=== PATIENT | female | born 1975 | race African-American/Black ===

== ENCOUNTER 2017-01-26 07:49 | Emergency (ER) | payer OTHER ==
[~2017-01-26] VITALS: Ht 160 cm; Wt 72.6 kg
[2017-01-26 07:54] VITALS: BP 120/70
[2017-01-26] MEDS ORDERED: LIDO700A4 TP (08:15)
[2017-01-26] MEDS ORDERED: METH4TAB2 PO (08:15)
[2017-01-26] MEDS ORDERED: DIAZ5TAB PO (08:15)
[2017-01-26] MEDS ORDERED: HYDROcodone/APAP 5/325MG 1 TAB TABLET PO ONE (08:15)
--- NOTE | 2017-01-26 08:22 | PHYS DOC ---
Past Medical History Past Medical History: Other Additional Past Medical Histor: "RENAL CYST" Past Surgical History: Hysterectomy Alcohol Use: None Drug Use: None Adult General Chief Complaint Chief Complaint: LOWER BACK PAIN HPI HPI Patient is a 41 year old FEMALE who presents with low back pain. She's been having this pain for months, she is unsure of exacerbating or relieving factors , pain radiates from her mid back through to her feet bilaterally. She's been seen by her primary care physician and put on ibuprofen and Flexeril but this does not help her pain. She denies any saddle sensory change, no bowel or bladder incontinence or retention. She does not recall a specific injury that caused her pain. Not had any imaging of her back. No dysuria or increased urinary frequency, no fever. No change in her pain over the last several months. Review of Systems Review of Systems Constitutional: Denies fever or chills [] Eyes: Denies change in visual acuity, redness, or eye pain [] HENT: Denies nasal congestion or sore throat [] Respiratory: Denies cough or shortness of breath [] Cardiovascular: No additional information not addressed in HPI [] GI: Denies abdominal pain, nausea, vomiting, bloody stools or diarrhea [] : Denies dysuria or hematuria [] Musculoskeletal: Denies joint pain [] Integument: Denies rash or skin lesions [] Neurologic: Denies headache, focal weakness or sensory changes [] Current Medications Current Medications Current Medications Medications (Trade) Dose Ordered Sig/Sean Start Time Stop Time Status Last Admin Dose Admin Acetaminophen/ Hydrocodone Bitart (Lortab 5/325) 1 tab 1X ONCE 01/26/17 08:15 01/26/17 08:16 DC Diazepam (Valium) 5 mg 1X ONCE 01/26/17 08:15 01/26/17 08:16 DC Allergies Allergies Allergies Coded Allergies Type Severity Reaction Last Updated Verified No Known Drug Allergies 11/13/14 No Physical Exam Physical Exam Constitutional: Well developed, well nourished, no acute distress, non-toxic appearance. [] HENT: Normocephalic, atraumatic, bilateral external ears normal, oropharynx moist, no oral exudates, nose normal. [] Eyes: PERRLA, EOMI, conjunctiva normal, no discharge. [] Neck: Normal range of motion, no tenderness, supple, no stridor. [] Cardiovascular:Heart rate regular with regular rhythm, no murmur [] Lungs & Thorax: Bilateral breath sounds clear to auscultation [] Abdomen: soft, no tenderness, no masses, no pulsatile masses. [] Skin: Warm, dry, no erythema, no rash. [] Back: No midline tenderness or step-offs, tender to palpation in the left mid back and over left SI joint, positive straight leg test bilaterally, no erythema or increased warmth, no fluctuance. Extremities: No tenderness, no cyanosis, no clubbing, ROM intact, no edema. [] Neurologic: Alert and oriented X 3, normal motor function, normal sensory function, no focal deficits noted. [] Psychologic: Affect normal, judgement normal, mood normal. [] Current Patient Data Vital Signs Vital Signs Date Time Temp Pulse Resp B/P (MAP) Pulse Ox O2 Delivery O2 Flow Rate FiO2 01/26/17 07:54 97.9 93 18 97 Room Air 97.9 EKG EKG [] Radiology/Procedures Radiology/Procedures [] Course & Med Decision Making Course & Med Decision Making Pertinent Labs and Imaging studies reviewed. (See chart for details) Patient is not driving. She was given IM Valium and one Moroni tablet. We'll discharge with Medrol Dosepak, Valium for muscle spasms, instructed not to take the Flexeril while taking the Valium, Lidoderm patches. One day work note given. Discussed with the patient that she's had these symptoms for extended period time and recommend her doctor ordering advanced imaging. Shashi Disclaimer Shashi Disclaimer This electronic medical record was generated, in whole or in part, using a voice recognition dictation system. Departure Departure Impression: Primary Impression: Radiculopathy Disposition: HOME, SELF-CARE Condition: STABLE Referrals: NO PCP Patient Instructions: Radicular Pain, Form - Excuse from Work, School, or Physical Activity, Back Pain, Adult, [id number] Scripts Lidocaine (LIDODERM) 700 Mg Adh..patch 1 PATCH TP DAILY Y for PAIN, #5 PATCH 0 Refills APPLY TO AFFECTED AREA FOR UP TO 12 HOURS, THEN REMOVE FOR 12 HOURS Prov: SIMI DALTON MD 01/26/17 Methylprednisolone (MEDROL) 4 Mg Tab.ds.pk 1 PKG PO UD, #1 PKG Prov: SIMI DALTON MD 01/26/17 Diazepam (VALIUM) 5 Mg Tablet 5 MG PO TID Y for MUSCLE SPASMS, #[address] OR OPERATE MACHINERY WHILE TAKING. Prov: SIMI DALTON MD 01/26/17 SIMI DALTON MD January 26, 2017 08:22
== END 2017-01-26 08:35 | disposition home or self-care (01) ==
LOC: ER 08:11
DX: M54.10 Radiculopathy, site unspecified (principal); M54.5 Low back pain; M54.6 Pain in thoracic spine; Z90.710 Acquired absence of both cervix and uterus
CPT/HCPCS: 96372; 99283; J3360

== ENCOUNTER 2017-02-20 11:26 | Emergency (ER) | payer OTHER ==
[~2017-02-20] VITALS: Ht 167.6 cm; Wt 79.4 kg
[~2017-02-20 11:26] MED LIST: DIAZ5TAB PO; LIDO700A4 TP; METH4TAB2 PO
[2017-02-20 11:45] VITALS: BP 125/74
[2017-02-20] MEDS ORDERED: AMOX1TAB61 PO (12:13)
--- NOTE | 2017-02-20 12:13 | PHYS DOC ---
Past Medical History Past Medical History: Other Additional Past Medical Histor: "RENAL CYST" Past Surgical History: Hysterectomy Alcohol Use: None Drug Use: None Adult General Chief Complaint Chief Complaint: SORE THROAT HPI HPI Patient is a 41 year old female since emergency department stating that she's had a 4 day history of sore throat. She is unsure if she had a fever or not she states that her boyfriend said that she felt warm. Patient states she's been taken ibuprofen for the discomfort. Patient continues to state that she has generalized body aches and discomfort. She denies any nasal drainage or any discharge. She denies cough. Denies any abdominal pain or discomfort no nausea vomiting and no diarrhea. Review of Systems Review of Systems Constitutional: Denies fever or chills [] Eyes: Denies change in visual acuity, redness, or eye pain [] HENT: Denies nasal congestion C/o sore throat [] Respiratory: Denies cough or shortness of breath [] Cardiovascular: No additional information not addressed in HPI [] GI: Denies abdominal pain, nausea, vomiting, bloody stools or diarrhea [] : Denies dysuria or hematuria [] Musculoskeletal: Denies back pain or joint pain [] Integument: Denies rash or skin lesions [] Neurologic: Denies headache, focal weakness or sensory changes [] Endocrine: Denies polyuria or polydipsia [] Allergies Allergies Allergies Coded Allergies Type Severity Reaction Last Updated Verified No Known Drug Allergies 11/13/14 No Physical Exam Physical Exam Constitutional: Well developed, well nourished, no acute distress, non-toxic appearance. [] HENT: Normocephalic, atraumatic, bilateral external ears normal, oropharynx moist, no oral exudates, nose normal. Bilateral tympanic membranes appear to be normal. Throat with postnasal drip noted clear to slightly yellowish in color. Throat appears to be red no exudate noted. Eyes: PERRLA, EOMI, conjunctiva normal, no discharge. [] Neck: Normal range of motion, no tenderness, supple, no stridor. [] Cardiovascular:Heart rate regular rhythm, no murmur [] Lungs & Thorax: Bilateral breath sounds clear to auscultation [] Skin: Warm, dry, no erythema, no rash. [] Back: No tenderness Extremities: No tenderness, no cyanosis, no clubbing, ROM intact, no edema. [] Neurologic: Alert and oriented X 3, normal motor function, normal sensory function, no focal deficits noted. [] Psychologic: Affect normal, judgement normal, mood normal. [] Current Patient Data Vital Signs Vital Signs Date Time Temp Pulse Resp B/P (MAP) Pulse Ox O2 Delivery O2 Flow Rate FiO2 02/20/17 11:45 99.3 115 20 99 Room Air 99.3 EKG EKG [] Radiology/Procedures Radiology/Procedures [] Course & Med Decision Making Course & Med Decision Making Pertinent Labs and Imaging studies reviewed. (See chart for details) Patient will be discharged home with Augmentin as the rapid strep is negative. She does not have any sinus pressure or tenderness noted over the maxillary or frontal sinus area. She was recommended to use Tylenol or ibuprofen for pain and discomfort as well as fevers. Encourage plenty of fluids such as water or Gatorade or propel. Patient will be discharged home with recommendations to follow-up primary care physician next 5-7 days. Signs and symptoms to return back to emergency department been provided. [] Dragon Disclaimer Dragon Disclaimer This electronic medical record was generated, in whole or in part, using a voice recognition dictation system. Departure Departure Impression: Primary Impression: URI (upper respiratory infection) Disposition: 01 HOME, SELF-CARE Condition: STABLE Referrals: AALIYAH YOUNGER MD (PCP) Patient Instructions: Upper Respiratory Infection, Adult, [id number] Additional Instructions: Home to rest. Tylenol or ibuprofen for fever chills or generalized body aches and discomfort. Drink plenty of fluids such as water Gatorade or propel. Medication as prescribed. Follow-up to primary care physician in the next 7-10 days. Return back to emergency prior signs and symptoms of become worse. Scripts Amoxicillin/Potassium Clav (AUGMENTIN 875-125 TABLET) 1 Each Tablet 1 TAB PO BID, #20 TAB Prov: WERNER FREDERICK APRN 02/20/17 WERNER FREDERICK APRN Feb 20, 2017 12:13
== END 2017-02-20 12:23 | disposition home or self-care (01) ==
LOC: ER 11:26
DX: J06.9 Acute upper respiratory infection, unspecified (principal); Z90.710 Acquired absence of both cervix and uterus
CPT/HCPCS: 99283

== ENCOUNTER 2017-05-12 20:42 | Emergency (ER) | payer OTHER ==
[~2017-05-12] VITALS: Ht 167.6 cm; Wt 79.4 kg
[~2017-05-12 20:42] MED LIST changes: +AMOX1TAB61 PO
[2017-05-12 21:30] VITALS: BP 112/64
[2017-05-12] MEDS ORDERED: ACET-704 PO (21:48)
--- NOTE | 2017-05-12 21:48 | PHYS DOC ---
Past Medical History Past Medical History: Other Additional Past Medical Histor: "RENAL CYST" Past Surgical History: Hysterectomy Alcohol Use: None Drug Use: None Adult General Chief Complaint Chief Complaint: LOWER BACK PAIN OR INJURY HPI HPI Patient is a 41 year old female presents to the emergency department with complaints of pain after a fall 2 weeks ago. Patient states the pain has waxed and waned. She states she has been ambulatory. She has no specific complaints. Review of Systems Review of Systems Constitutional: Denies fever or chills [] Eyes: Denies change in visual acuity, redness, or eye pain [] HENT: Denies nasal congestion or sore throat [] Respiratory: Denies cough or shortness of breath [] Cardiovascular: No additional information not addressed in HPI [] GI: Denies abdominal pain, nausea, vomiting, bloody stools or diarrhea [] : Denies dysuria or hematuria [] Musculoskeletal: Right arm and right leg pain Integument: Denies rash or skin lesions [] Neurologic: Denies headache, focal weakness or sensory changes [] Endocrine: Denies polyuria or polydipsia [] Allergies Allergies Allergies Coded Allergies Type Severity Reaction Last Updated Verified No Known Drug Allergies 11/13/14 No Physical Exam Physical Exam Constitutional: Well developed, well nourished, no acute distress, non-toxic appearance. [] HENT: Normocephalic, atraumatic, bilateral external ears normal, oropharynx moist, no oral exudates, nose normal. [] Eyes: PERRLA, EOMI, conjunctiva normal, no discharge. [] Neck: Normal range of motion, no tenderness, supple, no stridor. [] Cardiovascular:Heart rate regular rhythm, no murmur [] Lungs & Thorax: Bilateral breath sounds clear to auscultation [] Abdomen: Bowel sounds normal, soft, no tenderness, no masses, no pulsatile masses. [] Skin: Warm, dry, no erythema, no rash. [] Back: No tenderness, no CVA tenderness. [] Extremities: No tenderness, no cyanosis, no clubbing, ROM intact, no edema. [] Neurologic: Alert and oriented X 3, normal motor function, normal sensory function, no focal deficits noted. [] Psychologic: Affect normal, judgement normal, mood normal. [] Current Patient Data Vital Signs Vital Signs Date Time Temp Pulse Resp B/P (MAP) Pulse Ox O2 Delivery O2 Flow Rate FiO2 05/12/17 21:30 98.5 78 18 99 Room Air 98.5 EKG EKG [] Radiology/Procedures Radiology/Procedures [] Course & Med Decision Making Course & Med Decision Making Pertinent Labs and Imaging studies reviewed. (See chart for details) [] Dragon Disclaimer Dragon Disclaimer This electronic medical record was generated, in whole or in part, using a voice recognition dictation system. Departure Departure Impression: Primary Impression: Fall Additional Impression: Body aches Disposition: HOME, SELF-CARE Condition: STABLE Patient Instructions: Fall Prevention and Home Safety Scripts Acetaminophen With Codeine (TYLENOL WITH CODEINE #3 TABLET) 1 Each Tablet 1 TAB PO PRN Q6HRS Y for PAIN, #12 TAB Prov: WILFRED CASTELLANOS APRN 05/12/17 Problem Qualifiers Primary Impression: Fall Encounter type: initial encounter Qualified Codes: W19.XXXA - Unspecified fall, initial encounter WILFRED CASTELLANOS APRN May 12, 2017 21:48
== END 2017-05-12 22:05 | disposition home or self-care (01) ==
LOC: ER 20:42
DX: M79.604 Pain in right leg (principal); M79.601 Pain in right arm; Z90.710 Acquired absence of both cervix and uterus; W18.39XA Other fall on same level, initial encounter; Y93.89 Activity, other specified; Y92.89 Other specified places as the place of occurrence of the external cause; Y99.8 Other external cause status
CPT/HCPCS: 99283

== ENCOUNTER 2017-09-03 13:51 | Emergency (ER) | payer OTHER ==
[~2017-09-03] VITALS: Ht 165.1 cm; Wt 81.6 kg
[~2017-09-03 13:51] MED LIST changes: +ACET-704 PO
[2017-09-03 14:00] VITALS: BP 130/79
[2017-09-03 15:17] LABS: BILIRUBIN,URINE NEGATIVE (NEG); GLUCOSE,URINE NEGATIVE (NEG); NITRITE,URINE NEGATIVE (NEG); PROTEIN,URINE NEGATIVE (NEG-TRACE); UROBILINOGEN,URINE 0.2 mg/dL (0.2 mg/dL)
[2017-09-03 15:41] LABS: BACTERIA,URINE FEW /HPF (0-FEW); RBC,URINE OCC /HPF (0-2); SQUAMOUS EPITHELIAL CELL,UR MOD /LPF
[2017-09-04 06:25] LABS: NEGATIVE OBC STREP NEG; POSITIVE OBC STREP POS
--- NOTE | 2017-09-04 07:33 | PHYS DOC ---
Past Medical History Past Medical History: Other Additional Past Medical Histor: "IC", KIDNEY LESION Past Surgical History: Hysterectomy Alcohol Use: None Drug Use: None Adult General Chief Complaint Chief Complaint: SORE THROAT HPI HPI Patient is a 41 year old female who presents with a sore throat and left earache 3 days. The patient also has a runny nose and intermittent cough. She is worried that she might have strep throat. She is unsure if she has been running fevers as she does not have a thermometer at home. Review of Systems Review of Systems Constitutional: Denies fever or chills [] Eyes: Denies change in visual acuity, redness, or eye pain [] HENT: see history of present illness Respiratory: See history of present illness Cardiovascular: No additional information not addressed in HPI [] Musculoskeletal: Denies back pain or joint pain [] Integument: Denies rash or skin lesions [] Neurologic: Denies headache, focal weakness or sensory changes [] Endocrine: Denies polyuria or polydipsia [] All other systems were reviewed and found to be within normal limits, except as documented in this note. Allergies Allergies Allergies Coded Allergies Type Severity Reaction Last Updated Verified No Known Drug Allergies 11/13/14 No Physical Exam Physical Exam Constitutional: Well developed, well nourished, no acute distress, non-toxic appearance. [] HENT: Normocephalic, atraumatic, bilateral external ears normal, oropharynx moist with sinus drainage noted to throat, no oral exudates Eyes: PERRLA, EOMI, conjunctiva normal, no discharge. [] Neck: Normal range of motion, no tenderness, supple, no stridor. [] Cardiovascular:Heart rate regular rhythm, no murmur [] Lungs & Thorax: Bilateral breath sounds clear to auscultation [] Abdomen: Bowel sounds normal, soft, no tenderness, no masses, no pulsatile masses. [] Neurologic: Alert and oriented X 3, normal motor function, normal sensory function, no focal deficits noted. [] Psychologic: Affect normal, judgement normal, mood normal. [] Current Patient Data Vital Signs Vital Signs Date Time Temp Pulse Resp B/P (MAP) Pulse Ox O2 Delivery O2 Flow Rate FiO2 09/03/17 14:00 98.9 103 16 98 Room Air 98.9 Lab Values Laboratory Tests Test 09/03/17 14:50 Urine Color Yellow Urine Clarity Clear Urine pH 6.0 Urine Specific [place] 1.015 Urine Protein Negative mg/dL (NEG-TRACE) Urine Glucose (UA) Negative mg/dL (NEG) Urine Ketones (Stick) Negative mg/dL (NEG) Urine Blood Negative (NEG) Urine Nitrite Negative (NEG) Urine Bilirubin Negative (NEG) Urine Urobilinogen Dipstick 0.2 mg/dL (0.2 mg/dL) Urine Leukocyte Esterase Negative (NEG) Urine RBC Occ /HPF (0-2) Urine WBC 1-4 /HPF (0-4) Urine Squamous Epithelial Cells Mod /LPF Urine Bacteria Few /HPF (0-FEW) Urine Mucus Slight /LPF Group A Streptococcus Rapid Negative (NEGATIVE) EKG EKG [] Radiology/Procedures Radiology/Procedures [] Course & Med Decision Making Course & Med Decision Making Pertinent Labs and Imaging studies reviewed. (See chart for details) []1. Upper respiratory infection You may take [id number] cough and cold medication for symptom control. You may use ibuprofen or Tylenol for pain or fever. Increase your fluids and rest. Follow-up with your primary care provider in 3 days if not improving or return to the ED if worsening. Dragon Disclaimer Dragon Disclaimer This electronic medical record was generated, in whole or in part, using a voice recognition dictation system. Departure Departure Impression: Primary Impression: Pharyngitis Additional Impression: Upper respiratory infection Disposition: 01 HOME, SELF-CARE Condition: STABLE Patient Instructions: Upper Respiratory Infection, Adult, Sore Throat Additional Instructions: Follow-up with your primary care provider in 3 days if not improving or return to the ED if worsening. You may use [id number] cough and cold medication. You may use ibuprofen or Tylenol for pain or fever. Problem Qualifiers AGNES COUCH MATERIAL CONTROLLER Sep 04, 2017 07:33
== END 2017-09-03 15:43 | disposition home or self-care (01) ==
LOC: ER 13:51
DX: J02.9 Acute pharyngitis, unspecified (principal); J06.9 Acute upper respiratory infection, unspecified
CPT/HCPCS: 81001; 87070; 87880; 99284

== ENCOUNTER 2017-12-04 21:40 | Emergency (ER) | payer OTHER ==
[2017-12-04 22:09] LABS: URINE HCG POC HCG NEGATIVE (Negative)
[2017-12-04 22:10] LABS: BILIRUBIN,URINE NEGATIVE (NEG); CLARITY,URINE CLEAR; COLOR,URINE YELLOW; GLUCOSE,URINE NEGATIVE (NEG); NITRITE,URINE NEGATIVE (NEG); PH,URINE 5.5; PROTEIN,URINE NEGATIVE (NEG-TRACE); UROBILINOGEN,URINE 0.2 mg/dL (0.2 mg/dL)
[2017-12-04 22:17] LABS: BACTERIA,URINE FEW /HPF (0-FEW); RBC,URINE 0 /HPF (0-2); SQUAMOUS EPITHELIAL CELL,UR MOD /LPF; WBC,URINE RARE /HPF (0-4)
[2017-12-04] MEDS: diazePAM 5 MG TABLET PO (22:35)
[2017-12-04] MEDS: KETOROLAC 30 MG/ML INJ. IV (22:35)
[2017-12-04] MEDS: ONDANSETRON PF 4 MG/2 ML VIAL. IV (22:35)
[2017-12-04] MEDS: oxyCODONE/APAP 5/325 1 TAB TABLET PO (22:36)
[2017-12-04 22:43] LABS: ADD MAN DIFF? NO
[2017-12-04 22:44] LABS: BASO % 0 % (0-3); EOS # 0.1 x10^3/uL (0.0-0.7); EOS % 1 % (0-3); HEMATOCRIT 37.5 % (36.0-47.0); HEMOGLOBIN 12.5 g/dL (12.0-15.5); LYMPH # 3.5 x10^3/uL (1.0-4.8); LYMPH % 30 % (24-48); MEAN CORPUSCULAR HEMOGLOBIN 27 pg (25-35); MEAN CORPUSCULAR HGB CONC 33 g/dL (31-37); MEAN CORPUSCULAR VOLUME 82 fL (79-100); MONO # 1.1 x10^3/uL (0.0-1.1); MONO % 9 % (0-9); NEUT % 60 % (31-73); PLATELET COUNT 415 x10^3/uL (140-400); RED BLOOD COUNT 4.59 x10^6/uL (3.50-5.40); RED CELL DISTRIBUTION WIDTH 14.1 % (11.5-14.5); WHITE BLOOD COUNT 11.7 x10^3/uL (4.0-11.0)
[2017-12-04 22:53] LABS: ANION GAP 8 (6-14); BLOOD UREA NITROGEN 6 mg/dL (7-20); BUN/CREATININE RATIO 7 (6-20); CARBON DIOXIDE 30 mmol/L (21-32); CHLORIDE 102 mmol/L (98-107); CREATININE 0.9 mg/dL (0.6-1.0); GFR 83.9; GLUCOSE 101 mg/dL (70-99); POTASSIUM 3.5 mmol/L (3.5-5.1); SODIUM 140 mmol/L (136-145)
[2017-12-04 22:59] LABS: ALBUMIN 3.7 g/dL (3.4-5.0); ALBUMIN/GLOBULIN RATIO 0.9 (1.0-1.7); ALK PHOS 69 U/L (46-116); ALT (SGPT) 23 U/L (14-59); AST (SGOT) 16 U/L (15-37); TOTAL BILIRUBIN 0.3 mg/dL (0.2-1.0); TOTAL PROTEIN 7.9 g/dL (6.4-8.2)
== END 2017-12-05 01:01 | disposition home or self-care (01) ==
LOC: ER 12-05 01:01
DX: N28.1 Cyst of kidney, acquired (principal); M54.42 Lumbago with sciatica, left side; G89.29 Other chronic pain; Z90.710 Acquired absence of both cervix and uterus
CPT/HCPCS: 36415; 74176; 80053; 81001; 81025; 85025; 96374; 96375; 99285-25; J1885; J2405

== ENCOUNTER 2018-03-15 11:08 | Emergency (ER) | payer OTHER | END 2018-03-15 12:25 | disposition home or self-care (01) | LOC: ER 11:08 | DX: S61.011A Laceration without foreign body of right thumb without damage to nail, initial encounter (principal); F17.210 Nicotine dependence, cigarettes, uncomplicated; W26.0XXA Contact with knife, initial encounter; Y93.G9 Activity, other involving cooking and grilling; Y99.8 Other external cause status; Y92.000 Kitchen of unspecified non-institutional (private) residence as the place of occurrence of the external cause | CPT/HCPCS: 12001; 99283-25 ==

== ENCOUNTER → 2018-04-26 | Outpatient (CLI) | payer OTHER ==
[2018-03-15 11:55] VITALS: BP 122/67
[~2018-04-26] MED LIST changes: +CONTRAST GIVEN. MC PRN; +HYDR-971 PO; +HYDR25CA75 PO; +IOHEXOL 300 MG/ML 100ML VIAL. IV ONE; +ONDA4TAB10 PO; +OXYB5TAB7 PO; +TRAM50TA PO; +TRAZ-85 PO
--- NOTE | 2018-04-26 15:25 | RAD ---
Examination: CT of the abdomen pelvis without and with IV contrast HISTORY: History of left renal cyst COMPARISON: 12/04/2017 TECHNIQUE: Axial CT images of the abdomen pelvis were performed without and with IV contrast using CT urogram protocol. Coronal and sagittal reformats are performed. Exposure: One or more of the following individualized dose reduction techniques were utilized for this examination: 1. Automated exposure control 2. Adjustment of the mA and/or kV according to patient size 3. Use of iterative reconstruction technique FINDINGS: The visualized bibasilar lungs are clear. No evidence of free air identified in the abdomen. The visualized liver, spleen, adrenals grossly appears unremarkable. The visualized pancreas grossly appears unremarkable. The gallbladder is mildly distended. The visualized stomach is mildly distended. The small bowel is nondilated. Feces and gas noted in the colon. The bilateral kidneys enhance symmetrically. There is a cystic structure identified in the left kidney measuring 2.8 cm likely cyst. The Hounsfield units cyst measures about 29 Hounsfield units. The caliber of the aorta grossly appears unremarkable. Urinary bladder is mildly distended. No evidence of lytic bony destructive lesion. IMPRESSION: 1. 2.8 cm cystic structure identified in the left kidney likely a cyst given the Hounsfield units. Electronically signed by: Sumanth Pedraza MD (04/26/2018 3:22 PM) [id number]
== END | disposition home or self-care (01) ==
LOC: CT 14:43
PROVIDERS: ATTEND Urology
DX: N28.1 Cyst of kidney, acquired (principal); K82.8 Other specified diseases of gallbladder; Z87.891 Personal history of nicotine dependence
CPT/HCPCS: 74177; Q9967

== ENCOUNTER 2018-04-29 08:39 | Outpatient (CLI) | payer OTHER ==
[2018-04-29] VITALS (10 sets, daily range): BP systolic 103–127; BP diastolic 67–83
[~2018-04-29] VITALS: Ht 167.6 cm; Wt 79.4 kg
[~2018-04-29 08:39] MED LIST changes: -CONTRAST GIVEN. MC PRN; -HYDR25CA75 PO; -IOHEXOL 300 MG/ML 100ML VIAL. IV ONE; -OXYB5TAB7 PO; -TRAM50TA PO; -TRAZ-85 PO
[2018-04-29] MEDS ORDERED: OXYB5TAB7 PO (09:12)
[2018-04-29] MEDS ORDERED: TRAM50TA PO (09:12)
[2018-04-29] MEDS ORDERED: HYDR25CA75 PO (09:12)
[2018-04-29] MEDS ORDERED: TRAZ-85 PO (09:12)
[2018-04-29] MEDS ORDERED: MIDAZOLAM HCL/PF 2 MG/2 ML VIAL. ONE (09:13)
[2018-04-29] MEDS ORDERED: NALOXONE 0.4 MG/ML VIAL. ONE (09:14)
[2018-04-29] MEDS ORDERED: fentaNYL PF VIAL 100 MCG/2 ML VIAL ONE (09:14)
[2018-04-29] MEDS ORDERED: FLUMAZENIL 0.5 MG/5 ML VIAL. IV ONE (09:14)
[2018-04-29 09:44] LABS: BASO # 0.1 x10^3/uL (0.0-0.2); BASO % 1 % (0-3); EOS # 0.1 x10^3/uL (0.0-0.7); EOS % 2 % (0-3); HEMATOCRIT 40.2 % (36.0-47.0); HEMOGLOBIN 13.6 g/dL (12.0-15.5); LYMPH # 2.4 x10^3/uL (1.0-4.8); LYMPH % 32 % (24-48); MEAN CORPUSCULAR HEMOGLOBIN 28 pg (25-35); MEAN CORPUSCULAR HGB CONC 34 g/dL (31-37); MEAN CORPUSCULAR VOLUME 83 fL (79-100); MONO # 0.6 x10^3/uL (0.0-1.1); MONO % 8 % (0-9); NEUT # 4.4 x10^3uL (1.8-7.7); NEUT % 58 % (31-73); PLATELET COUNT 410 x10^3/uL (140-400); RED BLOOD COUNT 4.87 x10^6/uL (3.50-5.40); RED CELL DISTRIBUTION WIDTH 13.6 % (11.5-14.5); WHITE BLOOD COUNT 7.7 x10^3/uL (4.0-11.0)
[2018-04-29 10:02] LABS: CALCIUM 9.4 mg/dL (8.5-10.1); CREATININE 0.7 mg/dL (0.6-1.0); GFR 112.1; POTASSIUM 4.2 mmol/L (3.5-5.1)
[2018-04-29] MEDS ORDERED: fentaNYL PF VIAL 100 MCG/2 ML VIAL IV ONE (10:15)
[2018-04-29] MEDS ORDERED: LIDOCAINE WITH 8.4% SOD BICARB 3 ML DISP.SYRIN. IJ ONE (10:15)
[2018-04-29] MEDS ORDERED: MIDAZOLAM HCL/PF 2 MG/2 ML VIAL. IV ONE (10:15)
[2018-04-29 10:18] LABS: PROTHROMBIN TIME PATIENT 12.5 SEC (11.7-14.0)
[2018-04-29] MEDS ORDERED: LIDOCAINE WITH 8.4% SOD BICARB 3 ML DISP.SYRIN. ONE (10:29)
--- NOTE | 2018-04-29 16:36 | RAD ---
Ultrasound-guided aspiration, left renal cyst 04/29/2018 Indication: Superior left renal cyst. 3 years of left-sided back pain. Discussion: The risks and benefits of the procedure were discussed the patient. Informed consent was obtained. A timeout procedure was performed. The left flank was prepped and draped using maximum sterile barrier technique. Ultrasound evaluation demonstrates a simple appearing cyst in superior pole of left kidney, similar to prior imaging studies. 1% lidocaine was administered for local anesthesia to the skin and subcutaneous tissues overlying the cyst. Under direct ultrasound guidance a 19-gauge needle was advanced into the cyst. 10 cc of simple serous appearing fluid was aspirated. Sample was sent for cytology evaluation. Review ultrasound demonstrates near total collapse of the aforementioned cyst. No hematoma or other complication was identified. The patient tolerated the procedure well and was transferred to the recovery unit in stable condition. The procedures performed under conscious sedation including continuous cardiopulmonary monitoring via dedicated sedation nurse. [id number] sedation time: 30 minutes Impression: Ultrasound-guided aspiration of superior renal cyst
== END 2018-04-29 12:00 | disposition home or self-care (01) ==
LOC: INTRAD 08:39
PROVIDERS: ATTEND Surgery
DX: N28.1 Cyst of kidney, acquired (principal); Z90.710 Acquired absence of both cervix and uterus; Z79.899 Other long term (current) drug therapy; Z87.891 Personal history of nicotine dependence
CPT/HCPCS: 36415; 50390; 76942; 80048; 85025; 85610; 99152; 99153; J2250; J3010

== ENCOUNTER 2018-08-10 18:20 | Emergency (ER) | payer OTHER ==
[~2018-08-10] VITALS: Ht 167.6 cm; Wt 79.4 kg
[~2018-08-10 18:20] MED LIST changes: +HYDR-3164 PO; -HYDR-971 PO; +HYDR25CA75 PO; +OXYB5TAB7 PO; +TRAM50TA PO; +TRAZ-85 PO
[2018-08-10 18:34] VITALS: BP 124/80
--- NOTE | 2018-08-10 18:35 | PHYS DOC ---
Past Medical History Past Medical History: Other Additional Past Medical Histor: KIDNEY LESION, interstitial cystitis Past Surgical History: Hysterectomy Alcohol Use: Occasionally Drug Use: None Adult General Chief Complaint Chief Complaint: FLU SYMPTOM HPI HPI Patient is a 42 year old F who presents with headache, generalized body aches, chest and back pain with cough. Patient reports this all started approximately 6 days ago. She reports she is a smoker, but no history of asthma. She denies any fever. Review of Systems Review of Systems Constitutional: Denies fever or chills [] Eyes: Denies change in visual acuity, redness, or eye pain [] HENT: Reports congestion, sore throat Respiratory: Reports cough denies shortness of breath [] Cardiovascular: Reports chest wall pain with cough, no palpitations GI: Denies abdominal pain, nausea, vomiting, or diarrhea [] Musculoskeletal: Reports mid back pain Integument: Denies rash or skin lesions [] Neurologic: Reports headache, Denies focal weakness or sensory changes [] All other systems were reviewed and found to be within normal limits, except as documented in this note. Allergies Allergies Allergies Coded Allergies Type Severity Reaction Last Updated Verified No Known Drug Allergies 11/13/14 No Physical Exam Physical Exam Constitutional: Well developed, well nourished, no acute distress, non-toxic appearance. [] HENT: Normocephalic, atraumatic, bilateral TMs normal, oropharynx moist, no oral exudates Eyes: PERRLA, EOMI, conjunctiva normal, no discharge. [] Neck: Normal range of motion, no tenderness, supple, no stridor. [] Cardiovascular:Heart rate regular rhythm, no murmur [] Lungs & Thorax: Bilateral breath sounds clear to auscultation. Coarse rhonchi with cough [] Skin: Warm, dry, no erythema, no rash. [] Back: Mid back pain on palpation Extremities: No tenderness, ROM intact Neurologic: Alert and oriented X 3, normal motor function, normal sensory function, no focal deficits noted. [] Psychologic: Affect normal, judgement normal, mood normal. [] Current Patient Data Vital Signs Vital Signs Date Time Temp Pulse Resp B/P (MAP) Pulse Ox O2 Delivery O2 Flow Rate FiO2 08/10/18 18:34 98.4 109 20 124/80 (95) 96 Room Air 98.4 EKG EKG [] Radiology/Procedures Radiology/Procedures [] Course & Med Decision Making Course & Med Decision Making Pertinent Labs and Imaging studies reviewed. (See chart for details) Plan: Will treat like a pneumonia, patient is a smoker. Doxycycline Rx, Tussionex Rx, supportive care, push fluids, follow up with PCP, return precautions reviewed[] Dragon Disclaimer Dragon Disclaimer This electronic medical record was generated, in whole or in part, using a voice recognition dictation system. Departure Departure Impression: Primary Impression: Pneumonia Disposition: HOME, SELF-CARE Condition: STABLE Referrals: LEANDRO URIARTE (PCP) Patient Instructions: Pneumonia, Adult Additional Instructions: Push fluids, rest Scripts Hydrocodone/Chlorphen Polis (HYDROCODONE-CHLORPHENIRAM SUSP) 5 Ml Alessandra.er.12h 5 ML PO PRN Q12HR PRN for COUGH, #90 ML 0 Refills Prov: JAZMIN MARTI APR08/10/18 Doxycycline Hyclate (DOXYCYCLINE HYCLATE) 100 Mg Capsule 1 CAP PO BID, #20 CAP Prov: JAZMIN MARTI APR08/10/18 Attending Signature Attending Signature I have reviewed the PA/GAS [employer]ER INSTALLER's note and plan of care. I was available for consultation as needed during the patient's visit in the emergency department. I agree with the clinical impression, plan, and disposition. Problem Qualifiers Primary Impression: Pneumonia Pneumonia type: due to unspecified organism Laterality: unspecified laterality Lung location: unspecified part of lung Qualified Codes: J18.9 - Pneumonia, unspecified organism JAZMIN MARTI APRN Aug 10, 2018 18:35 REGINA PLUNKETT DO Aug 10, 2018 20:41
[2018-08-10] MEDS ORDERED: HYDR5SUS PO (18:39)
[2018-08-10] MEDS ORDERED: DOXY100C2 PO (18:39)
== END 2018-08-10 18:55 | disposition home or self-care (01) ==
LOC: ER 18:20
DX: M79.10 Myalgia, unspecified site (principal); J18.9 Pneumonia, unspecified organism; M54.89 Other dorsalgia; F17.200 Nicotine dependence, unspecified, uncomplicated; Z90.710 Acquired absence of both cervix and uterus
CPT/HCPCS: 99283

== ENCOUNTER 2019-03-20 08:06 | Emergency (ER) | payer OTHER ==
[~2019-03-20] VITALS: Ht 167.6 cm; Wt 72.6 kg
[~2019-03-20 08:06] MED LIST changes: +DOXY100C2 PO; +HYDR5SUS PO; +TRAZ-118 PO; -TRAZ-85 PO
[2019-03-20] MEDS ORDERED: MORPHINE SULFATE 2 MG/ML VIAL. IV ONE ×2 (08:30→11:15)
[2019-03-20] MEDS ORDERED: IV NORMAL SALINE 1000ML BAG 1,000 ML IV ONE (08:30)
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
[2019-03-20] MEDS ORDERED: IOHEXOL 300 MG/ML 100ML VIAL. IV ONE (08:45)
[2019-03-20] MEDS ORDERED: CONTRAST GIVEN. MC PRN (08:45)
[2019-03-20 08:53] LABS: BASO # 0.1 x10^3/uL (0.0-0.2); BASO % 0 % (0-3); EOS % 0 % (0-3); HEMATOCRIT 40.4 % (36.0-47.0); HEMOGLOBIN 13.7 g/dL (12.0-15.5); LYMPH # 2.2 x10^3/uL (1.0-4.8); LYMPH % 13 % (24-48); MEAN CORPUSCULAR HEMOGLOBIN 28 pg (25-35); MEAN CORPUSCULAR HGB CONC 34 g/dL (31-37); MEAN CORPUSCULAR VOLUME 83 fL (79-100); MONO % 6 % (0-9); NEUT # 14.4 x10^3uL (1.8-7.7); NEUT % 81 % (31-73); PLATELET COUNT 377 x10^3/uL (140-400); RED BLOOD COUNT 4.87 x10^6/uL (3.50-5.40); RED CELL DISTRIBUTION WIDTH 13.9 % (11.5-14.5); WHITE BLOOD COUNT 17.8 x10^3/uL (4.0-11.0)
--- NOTE | 2019-03-20 08:56 | EKG ---
[facility] [address] [place] [address] Test Date: 2019-03-20 Test Time: 08:34:53 Pat Name: ACOSTA DINH Department: Room: Gender: F Vision Specialist: : 1975 Requested By: REGINA MILLS Order Number: [id number] Reading MD: Measurements Intervals [place] Rate: 120 P: 90 OH: 148 QRS: 21 QRSD: 72 T: 25 QT: 312 QTc: 445 Interpretive Statements SINUS TACHYCARDIA OTHERWISE NORMAL ECG No previous ECG available for comparison
[2019-03-20 09:07] LABS: CALCIUM 9.2 mg/dL (8.5-10.1); GFR 73.9; POTASSIUM 3.3 mmol/L (3.5-5.1)
[2019-03-20 09:09] LABS: PREG TEST PT QUAL NEGATIVE (NEG)
[2019-03-20 09:13] LABS: ALBUMIN 3.9 g/dL (3.4-5.0); ALBUMIN/GLOBULIN RATIO 0.9 (1.0-1.7); TOTAL BILIRUBIN 0.4 mg/dL (0.2-1.0); TOTAL PROTEIN 8.1 g/dL (6.4-8.2)
[2019-03-20 09:13] LABS: BILIRUBIN,URINE NEGATIVE (NEG); CLARITY,URINE CLEAR; COLOR,URINE YELLOW; NITRITE,URINE NEGATIVE (NEG); PH,URINE 5.5; PROTEIN,URINE NEGATIVE (NEG-TRACE)
[2019-03-20 09:20] LABS: BACTERIA,URINE FEW /HPF (0-FEW); RBC,URINE 0 /HPF (0-2); SQUAMOUS EPITHELIAL CELL,UR MOD /LPF
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
[2019-03-20] MEDS ORDERED: POTASSIUM CHLORIDE 20 MEQ TABLET.ER. PO ONE (10:45)
[2019-03-20] MEDS ORDERED: KETOROLAC 15 MG/ML VIAL. IV ONE (11:00)
[2019-03-20] MEDS ORDERED: ONDANSETRON PF 4 MG/2 ML VIAL. IV ONE (11:00)
[2019-03-20 11:45] LABS: % LYMPHS 29 % (24-48); % MONOS 4 % (0-10); % SEGS 67 % (35-66); PLT ESTIMATE ADEQUATE (ADEQUATE)
[2019-03-20 15:36] VITALS: BP 108/69
== END 2019-03-20 16:29 | disposition home or self-care (01) ==
LOC: EEVIPCON 08:06 → ER 08:06
DX: S02.2XXA Fracture of nasal bones, initial encounter for closed fracture (principal); R10.33 Periumbilical pain; R51 Headache; R06.00 Dyspnea, unspecified; M54.2 Cervicalgia; R07.89 Other chest pain; M79.661 Pain in right lower leg; M54.5 Low back pain; Z90.710 Acquired absence of both cervix and uterus; Y04.0XXA Assault by unarmed brawl or fight, initial encounter; Y93.89 Activity, other specified; Y92.89 Other specified places as the place of occurrence of the external cause; Y99.8 Other external cause status
CPT/HCPCS: 36415; 70450; 70486; 70498; 71260; 72125; 72131; 73590; 74177; 80053; 81001; 84703; 85007; 85025; 93005; 96374; 96375; 96376; 99285; J1885; J2060; J2270; J2405; J7030; Q9967

== ENCOUNTER 2019-06-24 16:38 | Emergency (ER) | payer SELFPAY ==
[~2019-06-24] VITALS: Ht 167.6 cm; Wt 59.0 kg
[~2019-06-24 16:38] MED LIST changes: +OXYB5TAB10 PO; -OXYB5TAB7 PO
[2019-06-24] MEDS ORDERED: KETOROLAC 15 MG/ML VIAL. IV STA (17:18)
--- NOTE | 2019-06-24 17:25 | PHYS DOC ---
Past Medical History Past Medical History: Depression, Other Additional Past Medical Histor: KIDNEY LESION, interstitial cystitis (REGINA MILLS APRN) Past Surgical History: Hysterectomy (REGINA MILLS APRN) Alcohol Use: Occasionally Drug Use: None (REGINA MILLS APRN) Attending Signature I have participated in the care of this patient and I have reviewed and agree with all pertinent clinical information above including history, exam, and recommendations. (MERRITT MENON MD) Adult General Chief Complaint Chief Complaint: CHEST PAIN HPI HPI Patient is a 43 year old female presents with multiple complaints. The patient states that she started having a headache 1 week ago. Also started having a cough, and chest pain one week ago. Also was having nausea associated with the cough. She states she's also been having left flank pain that has been ongoing for years. Rates her pain as 10 out of 10 in severity and sharp. She has a history of interstitial cystitis and migraines. (REGINA MILLS APRN) Review of Systems Review of Systems Constitutional: Denies fever or chills [] Eyes: Reports L eye pain. HENT: Reports Headache. Respiratory: Reports cough. Cardiovascular: No additional information not addressed in HPI [] GI: Reports nausea. Denies abdominal pain, vomiting, bloody stools or diarrhea [] : Denies dysuria or hematuria [] Musculoskeletal: Denies back pain or joint pain [] Integument: Denies rash or skin lesions [] Neurologic: Denies focal weakness or sensory changes [] Endocrine: Denies polyuria or polydipsia [] Complete systems were reviewed and found to be within normal limits, except as documented in this note. (REGINA MILLS APRN) Current Medications Current Medications Current Medications Medications (Trade) Dose Ordered Sig/Sean Start Time Stop Time Status Last Admin Dose Admin Diphenhydramine HCl (Benadryl) 25 mg 1X ONCE 06/24/19 17:30 06/24/19 17:31 DC 06/24/19 18:01 25 MG Ketorolac Tromethamine (Toradol 15mg Vial) 10 mg 1X STAT 06/24/19 17:18 06/24/19 17:23 DC 06/24/19 18:01 10 MG Lidocaine HCl 20 ml 1X ONCE 06/24/19 17:30 06/24/19 17:31 DC 10/12/19 18:00 20 ML Ondansetron HCl (Zofran) 4 mg 1X ONCE 06/24/19 17:30 06/24/19 17:31 DC 06/24/19 18:01 4 MG Prochlorperazine Edisylate (Compazine) 10 mg 1X ONCE 06/24/19 17:30 06/24/19 17:31 DC 06/24/19 18:01 10 MG Sodium Chloride 1,000 ml @ 1,000 mls/hr 1X ONCE 06/24/19 17:30 06/24/19 18:29 DC 06/24/19 18:00 1,000 MLS/HR (MERRITT MENON MD) Allergies Allergies Allergies Coded Allergies Type Severity Reaction Last Updated Verified No Known Drug Allergies 11/13/14 No (MERRITT MENON MD) Physical Exam Physical Exam Constitutional: Well developed, well nourished, no acute distress, non-toxic appearance. [] HENT: Normocephalic, atraumatic, bilateral external ears normal, oropharynx moist, no oral exudates, nose normal. [] Eyes: PERRLA, EOMI, conjunctiva normal, no discharge. [] Neck: Normal range of motion, no tenderness, supple, no stridor. [] Cardiovascular:Heart rate regular rhythm, no murmur [] Lungs & Thorax: Bilateral breath sounds clear to auscultation [] Abdomen: Bowel sounds normal, soft, chronic left flank tenderness, no masses, no pulsatile masses. [] Skin: Warm, dry, no erythema, no rash. [] Back: No tenderness, no CVA tenderness. [] Extremities: No tenderness, no cyanosis, no clubbing, ROM intact, no edema. [] Neurologic: Alert and oriented X 3, normal motor function, normal sensory function, no focal deficits noted. [] Psychologic: Affect normal, judgement normal, mood normal. [] (REGINA MILLS APRN) Current Patient Data Vital Signs Vital Signs Date Time Temp Pulse Resp B/P (MAP) Pulse Ox O2 Delivery O2 Flow Rate FiO2 06/24/19 19:00 76 16 110/63 (79) 97 Room Air 06/24/19 16:45 98.5 98.5 (MERRITT MENON MD) Lab Values Laboratory Tests Test 06/24/19 16:55 06/24/19 20:00 White Blood Count 9.4 x10^3/uL (4.0-11.0) Red Blood Count 4.63 x10^6/uL (3.50-5.40) Hemoglobin 13.0 g/dL (12.0-15.5) Hematocrit 38.6 % (36.0-47.0) Mean Corpuscular Volume 83 fL (79-100) Mean Corpuscular Hemoglobin 28 pg (25-35) Mean Corpuscular Hemoglobin Concent 34 g/dL (31-37) Red Cell Distribution Width 13.9 % (11.5-14.5) Platelet Count 427 x10^3/uL (140-400) H Neutrophils (%) (Auto) 64 % (31-73) Lymphocytes (%) (Auto) 26 % (24-48) Monocytes (%) (Auto) 9 % (0-9) Eosinophils (%) (Auto) 1 % (0-3) Basophils (%) (Auto) 0 % (0-3) Neutrophils # (Auto) 6.0 x10^3/uL (1.8-7.7) Lymphocytes # (Auto) 2.4 x10^3/uL (1.0-4.8) Monocytes # (Auto) 0.8 x10^3/uL (0.0-1.1) Eosinophils # (Auto) 0.0 x10^3/uL (0.0-0.7) Basophils # (Auto) 0.0 x10^3/uL (0.0-0.2) Sodium Level 144 mmol/L (136-145) Potassium Level 3.6 mmol/L (3.5-5.1) Chloride Level 106 mmol/L (98-107) Carbon Dioxide Level 29 mmol/L (21-32) Anion Gap 9 (6-14) Blood Urea Nitrogen 9 mg/dL (7-20) Creatinine 0.8 mg/dL (0.6-1.0) Estimated GFR (Cockcroft-Gault) 95.6 BUN/Creatinine Ratio 11 (6-20) Glucose Level 107 mg/dL (70-99) H Calcium Level 9.5 mg/dL (8.5-10.1) Total Bilirubin 0.2 mg/dL (0.2-1.0) Aspartate Amino Transferase (AST) 17 U/L (15-37) Alanine Aminotransferase (ALT) 19 U/L (14-59) Alkaline Phosphatase 62 U/L (46-116) Creatine Kinase 132 U/L (26-192) Creatine Kinase MB (Mass) 1.7 ng/mL (0.0-3.6) Creatine Kinase MB Relative Index 1.3 % (0-4) Troponin I Quantitative < 0.017 ng/mL (0.000-0.055) Total Protein 7.9 g/dL (6.4-8.2) Albumin 3.9 g/dL (3.4-5.0) Albumin/Globulin Ratio 1.0 (1.0-1.7) Urine Collection Type Unknown Urine Color Yellow Urine Clarity Clear Urine pH 6.0 Urine Specific [place] 1.015 Urine Protein Negative mg/dL (NEG-TRACE) Urine Glucose (UA) Negative mg/dL (NEG) Urine Ketones (Stick) Negative mg/dL (NEG) Urine Blood Negative (NEG) Urine Nitrite Negative (NEG) Urine Bilirubin Negative (NEG) Urine Urobilinogen Dipstick 1.0 mg/dL (0.2 mg/dL) Urine Leukocyte Esterase Negative (NEG) Urine RBC 1-2 /HPF (0-2) Urine WBC 1-4 /HPF (0-4) Urine Squamous Epithelial Cells Few /LPF Urine Bacteria 0 /HPF (0-FEW) Urine Mucus Mod /LPF Laboratory Tests 06/24/19 16:55 Laboratory Tests 06/24/19 16:55 (MERRITT MENON MD) Lab Values Laboratory Tests Test 06/24/19 16:55 06/24/19 20:00 White Blood Count 9.4 x10^3/uL (4.0-11.0) Red Blood Count 4.63 x10^6/uL (3.50-5.40) Hemoglobin 13.0 g/dL (12.0-15.5) Hematocrit 38.6 % (36.0-47.0) Mean Corpuscular Volume 83 fL (79-100) Mean Corpuscular Hemoglobin 28 pg (25-35) Mean Corpuscular Hemoglobin Concent 34 g/dL (31-37) Red Cell Distribution Width 13.9 % (11.5-14.5) Platelet Count 427 x10^3/uL (140-400) H Neutrophils (%) (Auto) 64 % (31-73) Lymphocytes (%) (Auto) 26 % (24-48) Monocytes (%) (Auto) 9 % (0-9) Eosinophils (%) (Auto) 1 % (0-3) Basophils (%) (Auto) 0 % (0-3) Neutrophils # (Auto) 6.0 x10^3/uL (1.8-7.7) Lymphocytes # (Auto) 2.4 x10^3/uL (1.0-4.8) Monocytes # (Auto) 0.8 x10^3/uL (0.0-1.1) Eosinophils # (Auto) 0.0 x10^3/uL (0.0-0.7) Basophils # (Auto) 0.0 x10^3/uL (0.0-0.2) Sodium Level 144 mmol/L (136-145) Potassium Level 3.6 mmol/L (3.5-5.1) Chloride Level 106 mmol/L (98-107) Carbon Dioxide Level 29 mmol/L (21-32) Anion Gap 9 (6-14) Blood Urea Nitrogen 9 mg/dL (7-20) Creatinine 0.8 mg/dL (0.6-1.0) Estimated GFR (Cockcroft-Gault) 95.6 BUN/Creatinine Ratio 11 (6-20) Glucose Level 107 mg/dL (70-99) H Calcium Level 9.5 mg/dL (8.5-10.1) Total Bilirubin 0.2 mg/dL (0.2-1.0) Aspartate Amino Transferase (AST) 17 U/L (15-37) Alanine Aminotransferase (ALT) 19 U/L (14-59) Alkaline Phosphatase 62 U/L (46-116) Creatine Kinase 132 U/L (26-192) Creatine Kinase MB (Mass) 1.7 ng/mL (0.0-3.6) Creatine Kinase MB Relative Index 1.3 % (0-4) Troponin I Quantitative < 0.017 ng/mL (0.000-0.055) Total Protein 7.9 g/dL (6.4-8.2) Albumin 3.9 g/dL (3.4-5.0) Albumin/Globulin Ratio 1.0 (1.0-1.7) Urine Collection Type Unknown Urine Color Yellow Urine Clarity Clear Urine pH 6.0 Urine Specific [place] 1.015 Urine Protein Negative mg/dL (NEG-TRACE) Urine Glucose (UA) Negative mg/dL (NEG) Urine Ketones (Stick) Negative mg/dL (NEG) Urine Blood Negative (NEG) Urine Nitrite Negative (NEG) Urine Bilirubin Negative (NEG) Urine Urobilinogen Dipstick 1.0 mg/dL (0.2 mg/dL) Urine Leukocyte Esterase Negative (NEG) Urine RBC 1-2 /HPF (0-2) Urine WBC 1-4 /HPF (0-4) Urine Squamous Epithelial Cells Few /LPF Urine Bacteria 0 /HPF (0-FEW) Urine Mucus Mod /LPF Laboratory Tests 06/24/19 16:55 Laboratory Tests 06/24/19 16:55 (REGINA MILLS APRN) EKG EKG EKG interpreted by Dr. Menon No STEMI, Sinus tachycardia rate of 105 (REGINA MILLS APRN) Radiology/Procedures Radiology/Procedures Chest x-ray interpreted by Dr. Law No obvious acute abnormalities. (REGINA MILLS APRN) Course & Med Decision Making Course & Med Decision Making Pertinent Labs and Imaging studies reviewed. (See chart for details) Will get UA, supportive care, ekg, chest x-ray, and labs. Labs and urine are unremarkable. Will d/c home. Patient states she is feeling better. (REGINA MILLS APRN) Dragon Disclaimer Dragon Disclaimer This electronic medical record was generated, in whole or in part, using a voice recognition dictation system. (REGINA MILLS APRN) Departure Departure Impression: Primary Impression: Headache Additional Impression: Chest pain Disposition: HOME, SELF-CARE Condition: STABLE Referrals: LEANDRO URIARTE (PCP) Patient Instructions: General Headache Without Cause Additional Instructions: Thank you for visiting [facility]. We appreciate you trusting us with your care. If any additional problems come up don't hesitate to return to visit us. Please follow up with your primary care provider so they can plan additional care if needed and know about the problem that you had. If symptoms worsen come back to the Emergency Department. Any concerning symptoms that start such as chest pain, shortness of air, weakness or numbness on one side of the body, running high fevers or any other concerning symptoms return to the ER. The HEART Score for CP Pts HEART Score for Chest Pain: HEART Score for Chest Pain Response (Comments) Value History Slighlty/Non-Suspicious 0 ECG Normal 0 Age < 45 0 Risk Factors No Risk Factors 0 Troponin < Normal Limit 0 Total 0 Risk Factors: Risk Factors: DM, Current or recent (<one month) smoker, HTN, HLP, family history of CAD, obesity. Risk Scores: Score 0 - 3: 2.5% MACE over next 6 weeks - Discharge Home Score 4 - 6: 20.3% MACE over next 6 weeks - Admit for Clinical Observation Score 7 - 10: 72.7% MACE over next 6 weeks - Early Invasive Strategies (REGINA MILSL APRN) Problem Qualifiers Primary Impression: Headache Headache type: unspecified Headache chronicity pattern: unspecified pattern Intractability: not intractable Qualified Codes: R51 - Headache Additional Impression: Chest pain Chest pain type: unspecified Qualified Codes: R07.9 - Chest pain, unspecified REGINA MILLS APRN Jun 24, 2019 17:25 MERRITT MENON MD Jun 25, 2019 06:20
[2019-06-24 17:30] LABS: BASO % 0 % (0-3); EOS % 1 % (0-3); HEMATOCRIT 38.6 % (36.0-47.0); LYMPH # 2.4 x10^3/uL (1.0-4.8); LYMPH % 26 % (24-48); MEAN CORPUSCULAR HEMOGLOBIN 28 pg (25-35); MEAN CORPUSCULAR HGB CONC 34 g/dL (31-37); MEAN CORPUSCULAR VOLUME 83 fL (79-100); MONO # 0.8 x10^3/uL (0.0-1.1); MONO % 9 % (0-9); NEUT % 64 % (31-73); PLATELET COUNT 427 x10^3/uL (140-400); RED BLOOD COUNT 4.63 x10^6/uL (3.50-5.40); RED CELL DISTRIBUTION WIDTH 13.9 % (11.5-14.5); WHITE BLOOD COUNT 9.4 x10^3/uL (4.0-11.0)
[2019-06-24] MEDS ORDERED: PROCHLORPERAZINE 10 MG/2 ML VIAL. IV ONE (17:30)
[2019-06-24] MEDS ORDERED: LIDOCAINE 2% 20 ML VIAL. IJ ONE (17:30)
[2019-06-24] MEDS ORDERED: IV NORMAL SALINE 1000ML BAG 1,000 ML IV ONE (17:30)
[2019-06-24] MEDS ORDERED: diphenhydrAMINE 50 MG/ML VIAL IVP ONE (17:30)
[2019-06-24] MEDS ORDERED: ONDANSETRON PF 4 MG/2 ML VIAL. IV ONE (17:30)
[2019-06-24 17:40] LABS: CALCIUM 9.5 mg/dL (8.5-10.1); CREATININE 0.8 mg/dL (0.6-1.0); GFR 95.6; POTASSIUM 3.6 mmol/L (3.5-5.1)
[2019-06-24 17:47] LABS: ALBUMIN 3.9 g/dL (3.4-5.0); TOTAL BILIRUBIN 0.2 mg/dL (0.2-1.0); TOTAL PROTEIN 7.9 g/dL (6.4-8.2)
[2019-06-24 19:00] VITALS: BP 110/63
[2019-06-24 20:15] LABS: BILIRUBIN,URINE NEGATIVE (NEG); CLARITY,URINE CLEAR; COLOR,URINE YELLOW; NITRITE,URINE NEGATIVE (NEG); PROTEIN,URINE NEGATIVE (NEG-TRACE)
[2019-06-24 20:23] LABS: SQUAMOUS EPITHELIAL CELL,UR FEW /LPF
[2019-06-24 20:24] LABS: BACTERIA,URINE 0 /HPF (0-FEW)
--- NOTE | 2019-06-24 21:54 | RAD ---
CHEST PA LATERAL History: Chest pain, cough Comparison: November 13, 2014 Findings: 2 views of the chest are submitted. There is no infiltrate, pneumothorax, or effusion. Pericardial cardiac silhouette is within normal limits in size. Impression: 1. There is no radiographic evidence of acute cardiopulmonary disease. Electronically signed by: Clifton Anne MD (06/24/2019 9:51 PM) [facility]
--- NOTE | 2019-06-25 11:56 | EKG ---
[facility] [address] [place] [address] Test Date: 2019-06-24 Test Time: 16:45:36 Pat Name: ACOSTA DINH Department: Room: Gender: F Director Patient: : 1975 Requested By: REGINA MILLS Order Number: [id number] Reading MD: Measurements Intervals [place] Rate: 105 P: 62 DC: 150 QRS: 27 QRSD: 72 T: 15 QT: 336 QTc: 448 Interpretive Statements SINUS TACHYCARDIA OTHERWISE NORMAL ECG No previous ECG available for comparison
== END 2019-06-24 20:50 | disposition home or self-care (01) ==
LOC: ER 16:38
DX: G43.909 Migraine, unspecified, not intractable, without status migrainosus (principal); R07.89 Other chest pain; H57.12 Ocular pain, left eye; R11.0 Nausea; F32.9 Major depressive disorder, single episode, unspecified; Z90.710 Acquired absence of both cervix and uterus
CPT/HCPCS: 36415; 71046; 80053; 81001; 82553; 84484; 85025; 93005; 96374; 96375; 99285; J0780; J1200; J1885; J2001; J2405; J7030

== ENCOUNTER 2019-07-03 14:16 | Emergency (ER) | payer OTHER ==
[~2019-07-03] VITALS: Ht 167.6 cm; Wt 56.7 kg
[2019-07-03 14:34] VITALS: BP 140/83
--- NOTE | 2019-07-03 15:20 | PHYS DOC ---
Past Medical History Past Medical History: Depression, Other Additional Past Medical Histor: KIDNEY LESION, interstitial cystitis (WERNER FAULKNER APRN) Past Surgical History: Hysterectomy (WERNER FAULKNER APRN) Alcohol Use: Occasionally Drug Use: None (WERNER FAULKNER APRN) Attending Signature I have participated in the care of this patient and I have reviewed and agree with all pertinent clinical information above including history, exam, and recommendations. (MERRITT MENON MD) Adult General Chief Complaint Chief Complaint: KNEE INJURY HPI HPI Patient is a 43 year old female who presents with is a employee at [employer] and was working down in the kitchen and she lifted a tray on the cart and twisted her right knee. Patient rates her pain a 9 out of 10 and states it's sharp. Patient complains of lateral and medial knee pain. (WERNER FAULKNER APRN) Review of Systems Review of Systems Musculoskeletal: Denies back pain. Right joint pain [] All other systems were reviewed and found to be within normal limits, except as documented in this note. (WERNER FAULKNER APRN) Current Medications Current Medications Current Medications Medications (Trade) Dose Ordered Sig/Sean Start Time Stop Time Status Last Admin Dose Admin Ibuprofen (Motrin) 600 mg 1X ONCE 07/03/19 15:30 07/03/19 15:31 DC 07/03/19 15:09 600 MG (MERRITT MENON MD) Allergies Allergies Allergies Coded Allergies Type Severity Reaction Last Updated Verified No Known Drug Allergies 11/13/14 No (MERRITT MENON MD) Physical Exam Physical Exam Constitutional: Well developed, well nourished, no acute distress, non-toxic a ppearance. [] Skin: Warm, dry, no erythema, no rash. [] Back: No tenderness, no CVA tenderness. [] Extremities: Lateral and medial knee tenderness, no cyanosis, no clubbing, ROM intact but painful, 1+ edema. [] Neurologic: Alert and oriented X 3, normal motor function, normal sensory function, no focal deficits noted. [] Psychologic: Affect normal, judgement normal, mood normal. [] (WERNER FAULKNER APRN) Current Patient Data Vital Signs Vital Signs Date Time Temp Pulse Resp B/P (MAP) Pulse Ox O2 Delivery O2 Flow Rate FiO2 07/03/19 14:34 98.3 77 16 140/83 (102) 99 Room Air 98.3 (MERRITT MENON MD) EKG EKG [] (WERNER FAULKNER APRN) Radiology/Procedures Radiology/Procedures [] (WERNER FAULKNER APRN) Impressions: [facility] [address] [place] [address] IMAGING REPORT Signed PATIENT: ACOSTA DINH ACCOUNT: [id number] : 1975 LOCATION: ER AGE: 43 SEX: F EXAM STATUS: REG ER ORD. PHYSICIAN: WERNER FAULKNER APRN REASON: right knee pain after twisting motion. unable to bend PROCEDURE: KNEE RIGHT 3V KNEE RIGHT 3V History: Right knee pain after twisting motion. Technique: 3 views right knee. Comparison: None. Findings: Normal alignment. No fracture. No significant knee joint effusion. Soft tissues unremarkable. Impression: 1. No acute osseous abnormality. Electronically signed by: Maxime Storm DO (07/03/2019 3:35 PM) [facility] DICTATED and SIGNED BY: MAXIME STORM DO DATE: 07/03/19 153 (WERNER FAULKNER APRN) Course & Med Decision Making Course & Med Decision Making There is no laxity in the knee joint. There is tenderness to the medial and lateral knee palpation. No deformity is seen. 1+ edema. Patient denies any numbn ess or tingling. Patient is ambulatory on the extremity. No bruising, abrasion or laceration seen. Patient denies falling. (WERNER FAULKNER APRN) Dragon Disclaimer Dragon Disclaimer This electronic medical record was generated, in whole or in part, using a voice recognition dictation system. (WERNER FAULKNER APRN) Departure Departure Impression: Primary Impression: Knee pain Disposition: 01 HOME, SELF-CARE Condition: STABLE Referrals: LEANDRO URIARTE (PCP) REESE SAUNDERS II, MD Patient Instructions: Knee Sprain Additional Instructions: Follow up with primary care provider or Orthopedics as soon as possible. Rest your knee, ice and elevate. Scripts Ibuprofen (IBUPROFEN) 600 Mg Tablet 600 MG PO PRN Q6HRS PRN for INFLAMMATION, #20 TAB Prov: WERNER FAULKNER APRN 07/03/19 Problem Qualifiers Primary Impression: Knee pain Chronicity: acute Laterality: right Qualified Codes: M25.561 - Pain in right knee WERNER FAULKNER APRN Jul 03, 2019 15:20 MERRITT MENON MD Jul 04, 2019 06:07
[2019-07-03] MEDS ORDERED: IBUPROFEN 200 MG TABLET. PO ONE (15:30)
--- NOTE | 2019-07-03 15:38 | RAD ---
KNEE RIGHT 3V History: Right knee pain after twisting motion. Technique: 3 views right knee. Comparison: None. Findings: Normal alignment. No fracture. No significant knee joint effusion. Soft tissues unremarkable. Impression: 1. No acute osseous abnormality. Electronically signed by: Maxime Storm DO (07/03/2019 3:35 PM) [facility]
[2019-07-03] MEDS ORDERED: IBUP-1007 PO (15:45)
== END 2019-07-03 16:01 | disposition home or self-care (01) ==
LOC: ER 14:16
DX: M25.561 Pain in right knee (principal); Z90.710 Acquired absence of both cervix and uterus; X50.9XXA Other and unspecified overexertion or strenuous movements or postures, initial encounter; Y93.89 Activity, other specified; Y92.89 Other specified places as the place of occurrence of the external cause; Y99.8 Other external cause status
CPT/HCPCS: 73562; 99284

== ENCOUNTER → 2019-07-12 | Outpatient (CLI) | payer OTHER ==
[2019-07-03 14:34] VITALS: BP 140/83
[~2019-07-12] MED LIST changes: +IBUP-1007 PO
--- NOTE | 2019-07-12 13:15 | RAD ---
MRI study of the right knee without contrast Clinical indications: Medial right knee pain for one week. TECHNIQUE: Noncontrast MRI sequences of the right knee were performed in all 3 planes. COMPARISON: Radiographic study of the right knee dated July 11, 2019. FINDINGS: The anterior and posterior cruciate ligaments are intact. The quadriceps and patellar tendons are intact. No articular surface tear of the medial or lateral meniscus is seen. The medial collateral ligament is intact and no meniscocapsular separation is seen. The lateral collateral ligament complex and iliotibial band and popliteus tendon are intact. No posterior lateral corner injury is seen. No bone contusion or fracture or marrow infiltrative process is seen. No focal osteochondral abnormality of the medial or lateral tibiofemoral joint compartments is seen. The patella is normally aligned. There is moderate chondromalacia with mild subchondral marrow signal abnormality involving the medial groove of the trochlea. Articular cartilage of the patella is unremarkable. The medial and lateral retinacular ligaments are intact. No joint effusion is seen. No Law's cyst is seen. No muscle edema is seen. 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 No ligament or meniscal or tendon tear. Electronically signed by: Carloz Villagomez MD (07/12/2019 1:12 PM) [facility]
== END | disposition home or self-care (01) ==
LOC: MRI 09:03
PROVIDERS: ATTEND Orthopaedic Surgery Sports Medicine
DX: M94.261 Chondromalacia, right knee (principal)
CPT/HCPCS: 73721

== ENCOUNTER 2019-10-16 14:53 | Emergency (ER) | payer SELFPAY ==
[~2019-10-16] VITALS: Ht 165.1 cm; Wt 69.0 kg
[2019-10-16 16:15] LABS: BASO # 0.1 x10^3/uL (0.0-0.2); BASO % 1 % (0-3); EOS # 0.1 x10^3/uL (0.0-0.7); EOS % 1 % (0-3); HEMATOCRIT 38.8 % (36.0-47.0); HEMOGLOBIN 12.9 g/dL (12.0-15.5); LYMPH # 2.9 x10^3/uL (1.0-4.8); LYMPH % 35 % (24-48); MEAN CORPUSCULAR HEMOGLOBIN 28 pg (25-35); MEAN CORPUSCULAR HGB CONC 33 g/dL (31-37); MEAN CORPUSCULAR VOLUME 83 fL (79-100); MONO # 0.7 x10^3/uL (0.0-1.1); MONO % 8 % (0-9); NEUT # 4.5 x10^3/uL (1.8-7.7); NEUT % 55 % (31-73); PLATELET COUNT 382 x10^3/uL (140-400); RED BLOOD COUNT 4.68 x10^6/uL (3.50-5.40); RED CELL DISTRIBUTION WIDTH 13.7 % (11.5-14.5); WHITE BLOOD COUNT 8.2 x10^3/uL (4.0-11.0)
[2019-10-16] MEDS ORDERED: diphenhydrAMINE 50 MG/ML VIAL IVP ONE (16:15)
[2019-10-16] MEDS ORDERED: IV NORMAL SALINE 1000ML BAG 1,000 ML IV ONE (16:15)
[2019-10-16] MEDS ORDERED: PROCHLORPERAZINE 10 MG/2 ML VIAL. IV ONE (16:15)
[2019-10-16] MEDS ORDERED: ONDANSETRON PF 4 MG/2 ML VIAL. IV ONE (16:15)
[2019-10-16 16:25] LABS: BILIRUBIN,URINE NEGATIVE (NEG); CLARITY,URINE CLEAR; COLOR,URINE YELLOW; NITRITE,URINE POSITIVE (NEG); PH,URINE 5.5; PROTEIN,URINE NEGATIVE (NEG-TRACE)
[2019-10-16 16:25] LABS: PROTHROMBIN TIME PATIENT 13.7 SEC (11.7-14.0)
[2019-10-16 16:27] LABS: CALCIUM 9.1 mg/dL (8.5-10.1); CREATININE 0.8 mg/dL (0.6-1.0); GFR 95.6; POTASSIUM 3.5 mmol/L (3.5-5.1)
[2019-10-16 16:33] LABS: ALBUMIN 3.9 g/dL (3.4-5.0); ALBUMIN/GLOBULIN RATIO 1.1 (1.0-1.7); TOTAL BILIRUBIN 0.2 mg/dL (0.2-1.0); TOTAL PROTEIN 7.5 g/dL (6.4-8.2)
[2019-10-16 16:34] LABS: AMPHETAMINE/METHAMPHETAMINE NEG (NEG); BARBITURATES NEG (NEG); BENZODIAZEPINES NEG (NEG); CANNABINOIDS NEG (NEG); COCAINE NEG (NEG); METHADONE NEG (NEG); OPIATES NEG (NEG); PHENCYCLIDINE NEG (NEG); SQUAMOUS EPITHELIAL CELL,UR MOD /LPF
[2019-10-16 16:35] LABS: ACETAMIN < 2 mcg/ml (10-30); ETHANOL < 10 mg/dL (0-10); SALIC 2.9 mg/dL (2.8-20.0)
[2019-10-16 16:35] LABS: BACTERIA,URINE MANY /HPF (0-FEW); WBC,URINE 20-40 /HPF (0-4)
[2019-10-16 16:36] LABS: RBC,URINE OCC /HPF (0-2)
--- NOTE | 2019-10-16 16:39 | RAD ---
Exam: CT head INDICATION: Right-sided facial numbness for one week TECHNIQUE: Sequential axial images through the head were obtained without the administration of IV contrast. Comparisons: None FINDINGS: No focal parenchymal lesion or hemorrhage is identified. There is no midline shift or sulcal effacement. No acute vascular territory infarction is identified. Felix-white distinction is preserved. The ventricular system is within normal limits without compression hydrocephalus. The basal cisterns are well maintained. The visualized portions of the paranasal sinuses and mastoid air cells are well-pneumatized. No acute fractures. IMPRESSION: No acute intracranial abnormality. Exposure: One or more of the following in the visualized dose reduction techniques were utilized for this examination: 1. Automated exposure control 2. Adjustment of the MA and/or KV according to patient size Use of iterative of reconstructive technique Electronically signed by: Katelynn Yan MD (10/16/2019 4:36 PM) [facility]
--- NOTE | 2019-10-16 16:53 | EKG ---
[facility] [address] [place] [address] Test Date: 2019-10-16 Test Time: 16:34:18 Pat Name: ACOSTA DINH Department: Room: Gender: F Block Cableman: : 1975 Requested By: MARIAMA RONQUILLO Order Number: [id number] Reading MD: Measurements Intervals [place] Rate: 82 P: 43 SD: 164 QRS: 45 QRSD: 72 T: 42 QT: 376 QTc: 442 Interpretive Statements SINUS RHYTHM NORMAL ECG No previous ECG available for comparison
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
[2019-10-16] MEDS ORDERED: cefTRIAXone IV Push 1 GM VIAL. IVP ONE (17:15)
[2019-10-16] MEDS ORDERED: CEPH500C PO (19:15)
[2019-10-16 19:58] VITALS: BP 108/72
== END 2019-10-16 20:20 ==
LOC: ER 14:53
DX: R51 Headache (principal); R45.851 Suicidal ideations; R11.0 Nausea; H53.8 Other visual disturbances; F32.9 Major depressive disorder, single episode, unspecified; Z90.710 Acquired absence of both cervix and uterus
CPT/HCPCS: 36415; 70450; 80053; 80307; 80329; 81001; 82553; 84484; 85025; 85610; 87086; 93005; 96374; 96375; 99285; G0480; J0696; J0780; J1200; J2405; J7030

== ENCOUNTER 2020-08-15 13:30 | Emergency (ER) | payer SELFPAY ==
[~2020-08-15] VITALS: Ht 167.6 cm; Wt 61.3 kg
[~2020-08-15 13:30] MED LIST changes: +CEPH500C PO
[2020-08-15 14:16] VITALS: BP 121/92
[2020-08-15 14:50] LABS: INFLUENZA A PATIENT NEGATIVE (NEGATIVE); INFLUENZA B PATIENT NEGATIVE (NEGATIVE)
--- NOTE | 2020-08-15 14:53 | RAD ---
CHEST AP ONLY History: Reason: cough, PUI / Spl. Instructions: / History: Comparison: June 24, 2019 Findings: No consolidation or pleural effusion. Normal heart size. No pneumothorax. Impression: 1. No acute cardiopulmonary process. Electronically signed by: Maxime Storm DO (08/15/2020 2:45 PM) [id number]
== END 2020-08-15 15:11 | disposition left against medical advice (07) ==
LOC: ER 13:30
DX: R05 Cough (principal); Z20.828 Contact with and (suspected) exposure to other viral communicable diseases; J02.9 Acute pharyngitis, unspecified; R51.9 Headache, unspecified; R11.2 Nausea with vomiting, unspecified; Z53.21 Procedure and treatment not carried out due to patient leaving prior to being seen by health care provider
CPT/HCPCS: 71045; 87804; C9803; U0003

== ENCOUNTER → 2020-11-19 | Outpatient (CLI) | payer OTHER ==
--- NOTE | 2020-11-19 16:08 | RAD ---
EXAM: Renal sonogram. HISTORY: Renal cyst. TECHNIQUE: Sonographic imaging of the kidneys and bladder was performed. COMPARISON: CT dated 04/26/2018. FINDINGS: The kidneys are normal in size. There is a 1.4 cm simple cyst within the superior left kidn ey. There is no hydronephrosis. The bladder is unremarkable. IMPRESSION: 1. 1.4 cm simple appearing cyst within the left kidney. Follow-up is not routinely performed for simp le cysts. 2. No acute sonographic finding. Electronically signed by: Guillermina Fields MD (11/19/2020 4:06 PM) [id number]
== END ==
LOC: US 14:26
PROVIDERS: ATTEND Physician Assistant
DX: N28.1 Cyst of kidney, acquired (principal)
CPT/HCPCS: 76770

== ENCOUNTER → 2020-11-27 | Outpatient (CLI) | payer OTHER ==
[2020-11-27 13:59] LABS: BASO # 0.1 x10^3/uL (0.0-0.2); BASO % 1 % (0-3); EOS # 0.1 x10^3/uL (0.0-0.7); EOS % 1 % (0-3); HEMOGLOBIN 12.8 g/dL (12.0-15.5); LYMPH # 3.1 x10^3/uL (1.0-4.8); LYMPH % 36 % (24-48); MEAN CORPUSCULAR HEMOGLOBIN 28 pg (25-35); MEAN CORPUSCULAR HGB CONC 34 g/dL (31-37); MEAN CORPUSCULAR VOLUME 84 fL (79-100); MONO % 11 % (0-9); NEUT # 4.2 x10^3/uL (1.8-7.7); NEUT % 50 % (31-73); PLATELET COUNT 337 x10^3/uL (140-400); RED BLOOD COUNT 4.55 x10^6/uL (3.50-5.40); RED CELL DISTRIBUTION WIDTH 13.9 % (11.5-14.5); WHITE BLOOD COUNT 8.5 x10^3/uL (4.0-11.0)
[2020-11-27 14:34] LABS: ALBUMIN 3.6 g/dL (3.4-5.0); ALBUMIN/GLOBULIN RATIO 0.9 (1.0-1.7); C-REACTIVE PROTEIN 1.8 mg/L (0-3.3); CALCIUM 8.5 mg/dL (8.5-10.1); GFR 73.2; POTASSIUM 3.9 mmol/L (3.5-5.1); TOTAL BILIRUBIN 0.2 mg/dL (0.2-1.0); TOTAL PROTEIN 7.5 g/dL (6.4-8.2)
[2020-11-28 14:12] LABS: RHEUMATOID FACTOR <10.0 IU/mL (0.0-13.9)
[2020-11-29 20:08] LABS: ANA INTERP Negative (.)
== END ==
LOC: LAB 13:34
PROVIDERS: ATTEND Physician Assistant Medical
DX: M79.10 Myalgia, unspecified site (principal)
CPT/HCPCS: 36415; 80053; 85025; 85651; 86038; 86140; 86431

== ENCOUNTER 2020-12-21 12:22 | Emergency (ER) | payer OTHER ==
[~2020-12-21] VITALS: Ht 167.6 cm; Wt 76.7 kg
[2020-12-21] MEDS ORDERED: KETOROLAC 15 MG/ML VIAL. IVP ONE (12:45)
[2020-12-21] MEDS ORDERED: IV NORMAL SALINE 1000ML BAG 1,000 ML IV ONE (12:45)
[2020-12-21 12:47] LABS: BILIRUBIN,URINE NEGATIVE (NEG); CLARITY,URINE CLEAR; COLOR,URINE YELLOW; NITRITE,URINE NEGATIVE (NEG); PH,URINE 6.5 (<5.0-8.0); PROTEIN,URINE NEGATIVE (NEG-TRACE)
[2020-12-21 12:51] LABS: BACTERIA,URINE MODERATE /HPF (0-FEW); RBC,URINE RARE /HPF (0-2); TRICHOMONAS,URINE PRESENT; WBC,URINE OCC /HPF (0-4)
--- NOTE | 2020-12-21 12:59 | ED.ADGEN ---
Past Medical History Past Medical History: Anxiety, Depression, Other Additional Past Medical Histor: KIDNEY LESION, interstitial cystitis Past Surgical History: Hysterectomy, Other Additional Past Surgical Histo: drainage of kidney cyst Smoking Status: Former Smoker Additional Information: quit smoking 1 month ago Alcohol Use: Occasionally Drug Use: None General Adult EDM: Chief Complaint: BACK PAIN - NO INJURY HPI: HPI: Patient is a 45 year old female coming in for low back pain onset 1 hour prior to arrival. Patient states she was at work and was standing when the pain started. Denies any recent injuries, falls, heavy lifting. Patient states she also has had chest "heaviness" starting today. Patient states she has been treated with steroid taper for 10 days twice now for costochondritis. States that symptoms improve with the steroids but then come back afterwards. Denies any fevers, night sweats, bowel or bladder dysfunction, hematuria or dysuria. Patient has a history of a left renal cyst that had to be drained. Is unsure if it was infectious or malignant. Patient states she has gained some weight since taking the prednisone. Does not have prior medical history. Patient states she received her [employer] Covid vaccine yesterday. Took Tylenol 2 hours prior to arrival for the back pain. Patient is febrile here, but states she did not know she had a fever. Review of Systems: Review of Systems: All other systems within normal limits except for as noted in the HPI Current Medications: Current Medications Medications (Trade) Dose Ordered Sig/Sean Start Time Stop Time Status Last Admin Dose Admin Info (CONTRAST GIVEN -- Rx MONITORING) 1 each PRN DAILY PRN 12/21/20 14:30 12/23/20 14:29 Iohexol (Omnipaque 350 Mg/ml) 100 ml 1X ONCE 12/21/20 14:30 12/21/20 14:31 DC 12/21/20 02:50 100 ML Ketorolac Tromethamine (Toradol 15mg Vial) 15 mg 1X ONCE 12/21/20 12:45 12/21/20 12:54 DC 12/21/20 13:04 15 MG Sodium Chloride 1,000 ml @ 1,000 mls/hr 1X ONCE 12/21/20 12:45 12/21/20 13:44 DC 12/21/20 13:03 1,000 MLS/HR Allergies: Allergies: Allergies Coded Allergies Type Severity Reaction Last Updated Verified No Known Drug Allergies 11/13/14 No Physical Exam: PE: Constitutional: Well developed, well nourished, no acute distress, non-toxic appearance. [] HENT: Normocephalic, atraumatic, bilateral external ears normal, nose normal. [] Eyes: PERRLA, conjunctiva normal, no discharge. [] Neck: No rigidity, supple, no stridor. [] Cardiovascular: Echocardiac, regular rhythm, brisk cap refill [] Lungs & Thorax: Non labored symmetric respirations, no tachypnea or respiratory distress [] Abdomen: Soft, nondistended. Skin: Warm, dry, no erythema, no rash. [] Back: Unremarkable, no step-offs or deformities, tenderness over lower lumbar spine around L4-L5 and to the left lumbar area. Extremities: No deformities, range of motion grossly intact, no lower extremity edema [] Neurologic: Alert and oriented X 3, no focal deficits noted. [] Psychologic: Affect normal, judgement normal, mood normal. [] Current Patient Data: Labs: Laboratory Tests Test 12/21/20 12:30 12/21/20 12:52 Urine Collection Type Unknown Urine Color Yellow Urine Clarity Clear Urine pH 6.5 (<5.0-8.0) Urine Specific [place] 1.015 (1.000-1.030) Urine Protein Negative mg/dL (NEG-TRACE) Urine Glucose (UA) Negative mg/dL (NEG) Urine Ketones (Stick) Negative mg/dL (NEG) Urine Blood Negative (NEG) Urine Nitrite Negative (NEG) Urine Bilirubin Negative (NEG) Urine Urobilinogen Dipstick 1.0 mg/dL (0.2 mg/dL) Urine Leukocyte Esterase Negative (NEG) Urine RBC Rare /HPF (0-2) Urine WBC Occ /HPF (0-4) Urine Squamous Epithelial Cells Many /LPF Urine Bacteria Moderate /HPF (0-FEW) Urine Trichomonas Present White Blood Count 9.0 x10^3/uL (4.0-11.0) Red Blood Count 4.53 x10^6/uL (3.50-5.40) Hemoglobin 12.9 g/dL (12.0-15.5) Hematocrit 37.4 % (36.0-47.0) Mean Corpuscular Volume 83 fL (79-100) Mean Corpuscular Hemoglobin 29 pg (25-35) Mean Corpuscular Hemoglobin Concent 35 g/dL (31-37) Red Cell Distribution Width 13.4 % (11.5-14.5) Platelet Count 361 x10^3/uL (140-400) Neutrophils (%) (Auto) 76 % (31-73) H Lymphocytes (%) (Auto) 10 % (24-48) L Monocytes (%) (Auto) 13 % (0-9) H Eosinophils (%) (Auto) 0 % (0-3) Basophils (%) (Auto) 1 % (0-3) Neutrophils # (Auto) 6.8 x10^3/uL (1.8-7.7) Lymphocytes # (Auto) 0.9 x10^3/uL (1.0-4.8) L Monocytes # (Auto) 1.1 x10^3/uL (0.0-1.1) Eosinophils # (Auto) 0.0 x10^3/uL (0.0-0.7) Basophils # (Auto) 0.1 x10^3/uL (0.0-0.2) D-Dimer (Kristin) 1.49 ug/mlFEU (0.00-0.50) H Sodium Level 138 mmol/L (136-145) Potassium Level 3.8 mmol/L (3.5-5.1) Chloride Level 103 mmol/L (98-107) Carbon Dioxide Level 27 mmol/L (21-32) Anion Gap 8 (6-14) Blood Urea Nitrogen 9 mg/dL (7-20) Creatinine 0.9 mg/dL (0.6-1.0) Estimated GFR (Cockcroft-Gault) 82.7 BUN/Creatinine Ratio 10 (6-20) Glucose Level 80 mg/dL (70-99) Calcium Level 8.5 mg/dL (8.5-10.1) Total Bilirubin 0.3 mg/dL (0.2-1.0) Aspartate Amino Transferase (AST) 14 U/L (15-37) L Alanine Aminotransferase (ALT) 20 U/L (14-59) Alkaline Phosphatase 58 U/L (46-116) Troponin I Quantitative < 0.017 ng/mL (0.000-0.055) Total Protein 7.7 g/dL (6.4-8.2) Albumin 3.7 g/dL (3.4-5.0) Albumin/Globulin Ratio 0.9 (1.0-1.7) L Laboratory Tests 12/21/20 12:52 Laboratory Tests 12/21/20 12:52 Vital Signs: Vital Signs Date Time Temp Pulse Resp B/P (MAP) Pulse Ox O2 Delivery O2 Flow Rate FiO2 12/21/20 13:06 107 18 169/72 (104) 98 Room Air 12/21/20 12:31 100.6 100.6 EKG: EKG: Sinus tachycardia, heart rate 130 bpm, normal axis, no ST elevation or depression, no ectopy. [] Heart Score: C/O Chest Pain: Yes HEART Score for Chest Pain: HEART Score for Chest Pain Response (Comments) Value History Moderately Suspicious 1 ECG Normal 0 Age < 45 0 Risk Factors No Risk Factors 0 Troponin < Normal Limit 0 Total 1 Risk Factors: Risk Factors: DM, Current or recent (<one month) smoker, HTN, HLP, family history of CAD, obesity. Risk Scores: Score 0 - 3: 2.5% MACE over next 6 weeks - Discharge Home Score 4 - 6: 20.3% MACE over next 6 weeks - Admit for Clinical Observation Score 7 - 10: 72.7% MACE over next 6 weeks - Early Invasive Strategies Radiology/Procedures: Radiology/Procedures: PATIENT: ACOSTA DINH ACCOUNT: [id number] : 1975 LOCATION: ER AGE: 45 SEX: F EXAM STATUS: REG ER ORD. PHYSICIAN: RAFIA CUEVAS MD REASON: chest pain PROCEDURE: CT ANGIO CHEST W ABD PEL W/ PQRS Compliance Statement: One or more of the following individualized dose reduction techniques were utilized for this examination: 1. Automated exposure control 2. Adjustment of the mA and/or kV according to patient size 3. Use of iterative reconstruction technique Exam performed: CT pulmonary angiogram of the chest with contrast. CT abdomen pelvis Date: 12/21/2020. Comparison:None available Indication: Chest pain Technique: Contiguous helical acquisitions are obtained through the chest during intravenous administration of [ 20 cc of Omnipaque 350 . [Sagittal and coronal reformatted] and MIP images were obtained and reviewed Findings: CT pulmonary angiogram: Diagnostic quality: Adequate. Pulmonary emboli: None Right heart strain: None Pulmonary arteries: Normal in caliber Heart/Systemic Vasculature: Normal Mediastinum: Unremarkable Lungs: Clear Neck/Axilla/Body Wall: Normal Upper Abdomen: Grossly unremarkable. Left inferior renal pole cyst Bones: Normal Miscellaneous: None Impression: 1. Study is negative for pulmonary embolism End impression CT abdomen and pelvis findings: The liver, spleen, pancreas and gallbladder are normal. Both adrenal glands and bilateral kidneys are normal in size with symmetric aeration of contrast via both kidneys. There is a simple cyst in the superior pole of the left kidney. Aorta is normal in caliber without aneurysm. The small and large bowel loops are nondilated and unremarkable. Visualized appendix is normal. Hysterectomy. There is a round low attenuating 3.2 x 2.9 cm cystic nodule in the midline lower pelvis likely a cyst. This was seen previously. Trace amount of free fluid. Bones are normal IMPRESSION: No acute intra-abdominal or pelvic process seen. [] Course & Med Decision Making: Course & Med Decision Making Pertinent Labs and Imaging studies reviewed. (See chart for details) [] Dragon Disclaimer: Dragon Disclaimer: This electronic medical record was generated, in whole or in part, using a voice recognition dictation system. Departure Departure Impression: Primary Impression: Chest pain Additional Impressions: Back pain Suicidal thoughts Disposition: 01 DC HOME SELF CARE/HOMELESS Condition: STABLE Referrals: ADRIANA L[address] (PCP) Patient Instructions: Back Pain, Adult Scripts Cyclobenzaprine Hcl (CYCLOBENZAPRINE HCL) 10 Mg Tablet 1 TAB PO TID PRN for MUSCLE SPASMS for 5 Days, #15 TAB Prov: RAFIA CUEVAS MD 12/21/20 Meloxicam (MELOXICAM) 15 Mg Tablet 15 MG PO DAILY for pain for 10 Days, #10 TAB Prov: RAFIA CUEVAS MD 12/21/20 Problem Qualifiers RAFIA CUEVAS MD Dec 21, 2020 12:59
[2020-12-21 13:06] LABS: BASO # 0.1 x10^3/uL (0.0-0.2); BASO % 1 % (0-3); EOS % 0 % (0-3); HEMATOCRIT 37.4 % (36.0-47.0); HEMOGLOBIN 12.9 g/dL (12.0-15.5); LYMPH # 0.9 x10^3/uL (1.0-4.8); LYMPH % 10 % (24-48); MEAN CORPUSCULAR HEMOGLOBIN 29 pg (25-35); MEAN CORPUSCULAR HGB CONC 35 g/dL (31-37); MEAN CORPUSCULAR VOLUME 83 fL (79-100); MONO # 1.1 x10^3/uL (0.0-1.1); MONO % 13 % (0-9); NEUT # 6.8 x10^3/uL (1.8-7.7); NEUT % 76 % (31-73); PLATELET COUNT 361 x10^3/uL (140-400); RED BLOOD COUNT 4.53 x10^6/uL (3.50-5.40); RED CELL DISTRIBUTION WIDTH 13.4 % (11.5-14.5)
[2020-12-21 13:22] LABS: CALCIUM 8.5 mg/dL (8.5-10.1); CREATININE 0.9 mg/dL (0.6-1.0); GFR 82.7; POTASSIUM 3.8 mmol/L (3.5-5.1)
[2020-12-21 13:27] LABS: ALBUMIN 3.7 g/dL (3.4-5.0); ALBUMIN/GLOBULIN RATIO 0.9 (1.0-1.7); TOTAL BILIRUBIN 0.3 mg/dL (0.2-1.0); TOTAL PROTEIN 7.7 g/dL (6.4-8.2)
[2020-12-21] MEDS ORDERED: CONTRAST GIVEN. MC PRN (14:30)
[2020-12-21] MEDS ORDERED: IOHEXOL 350 MG/ML 100 ML VIAL. IV ONE (14:30)
--- NOTE | 2020-12-21 15:18 | RAD ---
PQRS Compliance Statement: One or more of the following individualized dose reduction techniques were utilized for this examinat ion: 1. Automated exposure control 2. Adjustment of the mA and/or kV according to patient size 3. Use of iterative reconstruction technique Exam performed: CT pulmonary angiogram of the chest with contrast. CT abdomen pelvis Date: 12/21/2020. Comparison:None available Indication: Chest pain Technique: Contiguous helical acquisitions are obtained through the chest during intravenous administ ration of [ 20 cc of Omnipaque 350 . [Sagittal and coronal reformatted] and MIP images were obtain ed and reviewed Findings: CT pulmonary angiogram: Diagnostic quality: Adequate. Pulmonary emboli: None Right heart strain: None Pulmonary arteries: Normal in caliber Heart/Systemic Vasculature: Normal Mediastinum: Unremarkable Lungs: Clear Neck/Axilla/Body Wall: Normal Upper Abdomen: Grossly unremarkable. Left inferior renal pole cyst Bones: Normal Miscellaneous: None Impression: 1. Study is negative for pulmonary embolism End impression CT abdomen and pelvis findings: The liver, spleen, pancreas and gallbladder are normal. Both adrenal glands and bilateral kidneys are normal in size with symmetric aeration of contrast via both kidneys. There is a simple cyst in the s uperior pole of the left kidney. Aorta is normal in caliber without aneurysm. The small and large bow el loops are nondilated and unremarkable. Visualized appendix is normal. Hysterectomy. There is a round low attenuating 3.2 x 2.9 cm cystic nodule in the midline lower pelvis likely a cyst. This was seen previously. Trace amount of free fluid. Bones are normal IMPRESSION: No acute intra-abdominal or pelvic process seen. Electronically signed by: Bree Guerra MD (12/21/2020 3:16 PM) [facility]
[2020-12-21] MEDS ORDERED: CYCL10TA2 PO (15:54)
[2020-12-21] MEDS ORDERED: MELO15TA23 PO (15:54)
[2020-12-21 16:05] VITALS: BP 133/82
--- NOTE | 2020-12-23 07:20 | EKG ---
[facility] [address] [place] [address] Test Date: 2020-12-21 Test Time: 12:52:04 Pat Name: ACOSTA DINH Department: Room: Gender: F [employer]: : 1975 Requested By: RAFIA CUEVAS Order Number: [id number] Reading MD: Measurements Intervals [place] Rate: 113 P: 65 DC: 146 QRS: 43 QRSD: 68 T: 39 QT: 316 QTc: 433 Interpretive Statements SINUS TACHYCARDIA NO SPECIFIC ECG ABNORMALITIES RI6.02 No previous ECG available for comparison
== END 2020-12-21 16:10 | disposition home or self-care (01) ==
LOC: ER 12:22
DX: R07.89 Other chest pain (principal); M54.5 Low back pain; R45.851 Suicidal ideations; F41.9 Anxiety disorder, unspecified; F32.9 Major depressive disorder, single episode, unspecified; Z87.891 Personal history of nicotine dependence; Z90.710 Acquired absence of both cervix and uterus; Z98.890 Other specified postprocedural states
CPT/HCPCS: 36415; 71275; 74177; 80053; 81001; 84484; 85025; 85379; 87086; 93005; 96361; 96374; 99285; J1885; J7030; Q9967